=== PATIENT | male | born 1955 | race Caucasian/White ===

== ENCOUNTER → 2017-05-04 | Outpatient (CLI) | payer OTHER ==
--- NOTE | 2017-05-04 15:41 | DIREP ---
PROCEDURE:CT CHEST W/O COMPARISON:None. INDICATIONS:LONG HISTORY 30 PACK YEARS SMOKING, OVER 53, STILL SMOKING TECHNIQUE:Helical sections through the chest were performed from the lung apices through the diaphragms without IV contrast. Sagittal and coronal reconstructions are obtained from source images. FINDINGS: LUNGS:No emphysematous changes or infiltrates are seen bilaterally. A few small calcified granulomas are scattered in the right lung. There is a 2 mm noncalcified pulmonary nodule in the right mid lung field and a 4 mm noncalcified pulmonary nodule in the right lower lobe. A 4 mm noncalcified pulmonary nodule is seen in the left lung apex. There are two 2 mm noncalcified pulmonary nodules in the left lower lobe and a 4 mm subpleural nodule in the left lower lobe. PLEURA:Normal. No mass or effusion. CARDIAC:A left-sided pacemaker is seen with the heart size normal. MEDIASTINUM:Normal. No mass or adenopathy. MENDEZ:Normal. No mass or adenopathy. AORTA:Normal. No aneurysm. CHEST WALL:Normal. No mass or axillary adenopathy. LIMITED ABDOMEN:Normal. Limited images of the upper abdomen are unremarkable. BONES:Mild degenerative changes are seen in the lower thoracic spine and several remote left lower rib fractures. OTHER:Negative. CONCLUSION:There are multiple small sub cm bilateral noncalcified pulmonary nodules as described above. Recommend a follow up study in 3-6 months to assess stability. Dictated by: Kevin Esposito M.D. on 05/04/2017 at 03:33 PM
== END | disposition home or self-care (01) ==
LOC: CT 09:55
PROVIDERS: ATTEND Family Medicine
DX: M47.894 Other spondylosis, thoracic region (principal); Z72.0 Tobacco use
CPT/HCPCS: 71250

== ENCOUNTER 2018-06-12 00:07 | Observation (INO) | payer OTHER ==
--- NOTE | 2018-06-07 16:09 | DIREP ---
PROCEDURE:CHEST 2 VIEWS COMPARISON:None. INDICATIONS:PRE-OP CARDIAC CATH, ABN STRESS, CAD, CHF FINDINGS: LUNGS/PLEURA:No significant pulmonary parenchymal abnormalities. No effusions. VASCULATURE:Normal. Unremarkable pulmonary vasculature. CARDIAC:Normal heart size with mild tortuosity of the thoracic aorta. Implanted biventricular pacing device noted over left upper chest. MEDIASTINUM:Normal. No visible mass or adenopathy. BONES:No acute pathology P OTHER:Negative. CONCLUSION:Implanted cardiac defibrillator noted. No evidence of acute cardiac or pulmonary disease. Dictated by: Delmar Hanna M.D. on 06/07/2018 at 04:03 PM
[~2018-06-12] VITALS: Ht 188 cm; Wt 113.4 kg
[~2018-06-12 00:07] MED LIST: APIX5TAB PO; ATOR40TA PO; CARV25TA PO; FURO-80 PO; INSU100V8 SQ; LISI-410 PO
[2018-06-12] MEDS ORDERED: HEPARIN ONE (06:10)
[2018-06-12] MEDS ORDERED: XYLOCAINE ONE (06:11)
[2018-06-12] MEDS ORDERED: SUBLIMAZE ONE (06:11)
[2018-06-12] MEDS ORDERED: VERSED ONE (06:11)
[2018-06-12] MEDS ORDERED: VALIUM PO ONE (08:00)
[2018-06-12 08:13] VITALS: BP 129/94
[2018-06-12] MEDS: NS 1000ML 1,000 ML IV SCH (08:24)
[2018-06-12] MEDS ORDERED: PHENERGAN PO ONE (09:30)
[2018-06-12 13:17] LABS: CALCIUM 9.4 mg/dL (8.4-10.5); CARBON DIOXIDE 24.6 mmol/L (20.0-32)
[2018-06-12] MEDS ORDERED: POTA20TA14 PO (13:36)
--- NOTE | 2018-06-12 14:06 | [facility] ---
DATE OF SERVICE: 06/12/2018 This is a 63-year-old male. PRECATHETERIZATION DIAGNOSES: Abnormal myocardial perfusion scan with inferoposterior hypoperfusion abnormality with a prior LAD stenting with dilated cardiomyopathy, post-biventricular pacer, ejection fraction is 20%. Assess for severity of coronary artery disease. PREOPERATIVE MEDICATIONS: Versed 1 mg IV, fentanyl 12.5 mcg IV. ANTICOAGULATION: Heparin 2000 units intra-arterially, 2000 units in the dye, 2000 units in the flush solution. Dye used is Isovue, total amount is 203 mL. CATHETERS: JL4 6-Scottish, JR4 6-Scottish, and 6-Scottish angled pigtail catheter. 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 ARTERIAL TIME: 42 minutes. FLUOROSCOPY TIME: About 15 minutes. PROCEDURES: Left heart catheterization, bilateral selective coronary arteriography, left ventriculography via right femoral Arben approach. NARRATION OF PROCEDURE: Under local anesthesia, right femoral artery was punctured percutaneously by arterial needle, guide wire passed in right femoral artery, 6-Scottish Cordis sheath introduced, side port of the sheath used for femoral arterial pressure monitoring. Sheath anchored with suture. Left Arben catheter introduced over guide wire into ascending aorta left coronary artery cannulated and left coronary angiography performed in MALAWIAN and STAHL projections with craniocaudal applications to visualize all branches. Left catheter exchanged for right coronary catheter and right coronary angiography performed in MALAWIAN and STAHL. This catheter exchanged for 6-Scottish pigtail catheter and catheter crossed the aortic valve and left ventricular LVEDP measured and LV gram performed in 30 degrees STAHL view with 30 mL Omnipaque dye and panning of descending aorta attempted. Patient tolerated procedure well. No complications of procedure. Angio-Seal deployed for hemostasis. The left main is patent proximal LAD and the stent appears to be patent. Circumflex is patent. Right coronary artery is of high uptake and the artery appears to be patent. Left ventricle is markedly dilated with LVEDP of 10 mm with global hypokinesis, ejection fraction of 20%. No evidence of mild mitral regurgitation is noted. His LV pressure was 102/10 femoral artery pressure 103/72 with a mean of 85. No gradient across the aorta. FINAL CONCLUSION: No flow obstructive coronary artery disease with left main patent, proximal LAD patent, circumflex patent, right coronary ostium was high uptake. Nonselective visualization of the right coronary artery without any flow obstruction, LV dilatation, dilated cardiomyopathy, 20% ejection fraction ____ in view of the fact that the patient has got severe cardiomyopathy and congestive heart failure with the manifestations of acute on chronic systolic heart failure, the patient was admitted in the hospital and optimization of medical therapy with initiation of Entresto 24/26 one tablet daily from 06/13/2018 along with Lasix 20 mg IV and continuation of Coreg 12.5 mg twice a day and check his electrolytes in addition of Aldactone will be done. Further management will depend on the clinical course. Emma Mujica MD DR: HENRIETTA/horacio JOB# [id number]
[2018-06-12 14:50] VITALS: BP 152/100
[2018-06-12 16:58] VITALS: BP 102/71
--- NOTE | 2018-06-12 17:18 | NUR ---
heart cath Patient care assumed when the patient arrived from OR post heart cath. Patient drowsy easily awakened for 2 hours. Patient left on Oxygen until he was fully awake due to Periods of apnea noted. See documentation on groin site.
--- NOTE | 2018-06-12 19:11 | NUR ---
report Reported to Rufino ASSISTANT STORE MANAGER at shift change.
[2018-06-12 19:55] VITALS: BP 97/63
[2018-06-12] MEDS ORDERED: LANTUS SQ SCH (21:00)
[2018-06-12] MEDS ORDERED: LIPITOR PO SCH (21:00)
[2018-06-12] MEDS: COREG PO SCH (21:02)
[2018-06-13 00:30] VITALS: BP 94/70
[2018-06-13 04:35] VITALS: BP 123/81
--- NOTE | 2018-06-13 05:06 | HPH ---
ADMIT DATE: 06/12/2018 CHIEF COMPLAINT: Acute on chronic systolic heart failure. HISTORY OF PRESENT ILLNESS: The patient is a 63-year-old white male who has history of dilated cardiomyopathy, paroxysmal atrial fibrillation, CAD and had a prior coronary stent and he has a very poor ejection fraction, came in for cardiac catheterization because of abnormal myocardial perfusion scan with inferoposterior ischemic substrate and was noted to have patent stents, but his LV function was very poor, somewhere around 10-15%, LVEDP was elevated at 25 mm and he displayed acute on chronic systolic heart failure with significant dyspnea and poor effort tolerance and hence I admitted him for change of his medications and start him on IV Lasix and Entresto to optimize his CHF therapy. ALLERGIES: None known. MEDICATIONS: He has been on Eliquis 5 mg twice a day, potassium 20 mEq once a day. He is diabetic, Lantus insulin 50 units at bedtime, lisinopril 10 mg once a day, Lasix 40 mg once a day, Coreg 12.5 mg twice a day, Lipitor 40 mg once a day. PAST MEDICAL HISTORY: Ischemic cardiomyopathy, chronic systolic heart failure, has had periodic hypotension, old myocardial infarction, heavy smoker, COPD, insulin-dependent diabetes mellitus, peripheral artery disease, and chronic stable angina. SOCIAL HISTORY: He used to smoke 2 packs a day for 7 years. No ethanol consumption. FAMILY HISTORY: Positive for heart problems. Father of heart problems at age 49 and history of stroke. Father had also had a stroke ____ and diabetes. PAST SURGICAL HISTORY: Two cardiac stents, eye surgery, skin grafting, tonsillectomy post-BiV pacer, ICD implant in the past. PHYSICAL EXAMINATION: GENERAL: He is 187 cm, weight 113 kilograms, BMI 32.1. VITAL SIGNS: Showed temperature 98, pulse 75, 152/100, respirations were 20. HEENT: Unremarkable. NECK: JVD noted about 8-10 cm over the angle of Jordin. No definite carotid bruits. CHEST: Thick chest wall. LUNGS: Poor air entry bilaterally, rales in the bases. HEART: Sounds S1, S2 normal. ABDOMEN: Soft. Bowel sounds present. EXTREMITIES: 1-2+ leg edema. NEUROLOGIC: No focal neuro deficit is documented. LABORATORY DATA: Initially has shown hyperkalemia, but potassium is down to 3.9. ProBNP 647, 1.66 creatinine, BUN is 14. IMAGING STUDIES: Chest x-ray done on 06/07/18 ____ cardiomegaly. IMPRESSION: Chronic systolic heart failure, very poor ejection fraction, about 10-15% with abnormal cardiac catheterization showing left main patent, LAD stents are patent, circumflex is patent, right coronary artery ____ coronary ostium. LVEDP was 10-15 mm with an ejection fraction of 15-20%. PLAN: At this time admit the patient, hold his lisinopril in the hospital because of low blood pressure and initiate Entresto from 06/13/2018, IV Lasix and telemetry monitoring ____. Laxmichand MD Sil DR: HENRIETTA/horacio JOB# [id number]
[2018-06-13 07:38] VITALS: BP 103/63
[2018-06-13] MEDS: NS 1000ML 1,000 ML IV SCH (08:00)
[2018-06-13] MEDS ORDERED: LASIX IV SCH (09:00)
[2018-06-13] MEDS ORDERED: ENTRESTO 24 MG-26 MG TABLET PO SCH (09:00)
[2018-06-13] MEDS ORDERED: ASPIRIN EC PO SCH (09:00)
[2018-06-13] MEDS: COREG PO SCH (09:05)
[2018-06-13] MEDS ORDERED: ASPI-655 PO (10:00)
[2018-06-13] MEDS ORDERED: SACU1TAB PO (10:00)
[2018-06-13] MEDS ORDERED: TORS20TA2 PO (10:00)
--- NOTE | 2018-06-13 10:00 | NUR ---
DISCHARGE PLAN CASE MANAGEMENT VISITED WITH PATIENT CONCERNING DISCHARGE PLAN AND NEEDS. LIVES AT HOME WITH TWO DOGS. INDEPENDENT OF ADLS. DOES NOT WORK ON DISABILITY AFTER LAST HEART ATTACK. DENIES NEED FOR HOME OXYGEN OR DME. CM EDUCATED PATIENT ON OUTPATIENT SERVICES, HOME HEALTH AND SNF. DENIES NEED FOR SERVICES AT THIS TIME. HAS FUNS AVAILABLE TO PAY FOR PRESCRIPTIONS IF NEEDED. PATIENT HAD CONCERNS ABOUT PRESCRIPTIONS BEING CALLED TO [facility] AND NOT WRITTEN UPON DISCHARGE. CM SPOKE WITH DR. WAY. SAMPLES OF ENTRESTO PROVIDED BY DR. WAY WHILE HIS OFFICE GETS THE MEDICATIONS APPROVED THROUGH INSURANCE. DISCHARGE GOAL IS TO DISCHARGE HOME AND CONTINUE SELF CARE. DENIES FURTHER NEEDS AT THIS TIME.
--- NOTE | 2018-06-13 10:26 | NUR ---
Report Report received at shift change from Sukumar BLEDSOE. Alert and oriented able to make his needs known.
[2018-06-13 11:21] VITALS: BP 114/69
[2018-06-13 13:32] VITALS: BP 114/69
--- NOTE | 2018-06-13 13:38 | NUR ---
Discharge Patient discharged home after DC teaching provided. Verbal and paper copies provided. IV and Telemetry DCd. Patient refused to have a conversation about the possibility of oxygen at night. States, "I would rather just pass away, then have to worry about carrying a tank around!" 'i sleep just fine, and been like this for a long time and I have had no problems." Teaching provided by this RN concerning sleep apnea, and the strain on the heart. Patient refused to accept a wheelchair ride to the exit. Ambulated to his vehicle, with his belongings.
--- NOTE | 2018-06-14 12:41 | DSH ---
DATE OF DISCHARGE: 06/13/2018 FINAL DIAGNOSES: Dilated ischemic cardiomyopathy with acute on chronic systolic heart failure, ejection fraction of 15%, post-biventricular pacer implantable cardioverter defibrillator, initiated on Entresto medication, coronary artery disease, patent left anterior descending stent, marked cardiomegaly. Please refer to my history and physical to the point of my impression. HOSPITAL COURSE: The patient is a 63-year-old white male who was referred from from the [facility], has been on poly-therapy for dilated cardiomyopathy, ischemic in nature. He has got prior coronary stenting, probably had an old extensive anterior wall infarct and he had abnormal myocardial perfusion scan with a fixed defect in the anterolateral and apical segment and lateral ischemia was also noted. Difficult to assess the extent of ischemia with a large scar already present and he was admitted for cardiac catheterization. Post-catheterization noted to have patent LAD stent, but his ejection fraction was only 10-15% and maximum would be 20% with marked LV dilatation and large anteroapical lateral segment dyskinetic segment, akinesis -- dyskinesis with anterobasal, posterobasal mild hypo-contractility and he had elevated LVEDP of close to 20 mm and he had not taken an LORENZO inhibitor. It was a perfect opportunity to put him in the hospital and give IV diuretics and initiate him on Entresto and see if he is able to tolerate and assess his blood pressure after the initiation of Entresto. He did well and his blood pressure was stable and he was discharged on 06/13/2018 on aspirin 81 mg once a day, Entresto 24/ one tablet twice a day, torsemide 20 mg once a day, history of paroxysmal atrial fibrillation, started on Eliquis 5 mg twice a day, Lipitor 20 mg once a day, Coreg 12.5 mg twice a day, insulin-dependent diabetic with Lantus insulin 50 units at bedtime, potassium 20 mEq once a day. I did stop his lisinopril and his Lasix and he was to come back on June 20 at 2:45 p.m. for assessment of his blood pressure and we will send prescription of Entresto and torsemide at the [facility], probably requires aggressive statin therapy and 80 mg of Lipitor, but has to go through the DC system. Laxmichand MD Sil DR: HENRIETTA/horacio JOB# [id number]
== END 2018-06-13 12:20 | disposition home or self-care (01) ==
LOC: SDC 00:07 → OBSVTOIN 12:13 → UNDOADMOB 12:13 → INTOOBSV 12:13 → MS 12:13
PROVIDERS: ADMIT Specialist; ATTEND Specialist
DX: I50.23 Acute on chronic systolic (congestive) heart failure (principal); I25.10 Atherosclerotic heart disease of native coronary artery without angina pectoris; I25.2 Old myocardial infarction; I25.5 Ischemic cardiomyopathy; I42.0 Dilated cardiomyopathy; I48.0 Paroxysmal atrial fibrillation; J44.9 Chronic obstructive pulmonary disease, unspecified; Z79.4 Long term (current) use of insulin; E11.51 Type 2 diabetes mellitus with diabetic peripheral angiopathy without gangrene; Z79.899 Other long term (current) drug therapy; Z82.3 Family history of stroke; Z83.3 Family history of diabetes mellitus; Z87.891 Personal history of nicotine dependence; Z95.5 Presence of coronary angioplasty implant and graft
CPT/HCPCS: 36415 ×3; 71046; 80053; 80061; 82948 ×5; 83880; 84132; 85610; 85730; 93458; 96372; 96374; 99152; 99153 ×3; C1760; C1894 ×4; G0378 ×24; J1644 ×2; J1815; J2250; J3010; J3490; J7030 ×2; Q9967; C1887; J1940